=== PATIENT | female | born 1995 | race Caucasian/White ===

== ENCOUNTER 2021-03-24 15:48 | Inpatient (IN) ==
[2021-03-24] MEDS ORDERED: Ketorolac 15 MG/ML VIAL IVP ONE (16:16)
[2021-03-24] MEDS ORDERED: Ondansetron 4 MG/2 ML VIAL IVP ONE (16:16)
[2021-03-24] MEDS ORDERED: 0.9 % Sodium Chloride 1,000 ML IVC ONE ×2 (16:16→17:29)
[2021-03-24] MEDS ORDERED: *HR* HYDROmorphone (PF) 1 MG/ML SYRINGE IVP STA (17:25)
[2021-03-24] MEDS ORDERED: *HR* Promethazine 25 MG/ML VIAL IM ONE (17:30)
[2021-03-24 18:14] LABS: Alanine Aminotransferase 30 Units/L (7-52); Albumin 3.9 g/dL (3.5-5.7); Albumin/Globulin Ratio 2.6 (1.1-2.2); Alkaline Phosphatase 52 Units/L (34-104); Aspartate Amino Transferase 31 Units/L (13-39); BUN/Creatinine Ratio 16 (6-26); Bilirubin,Direct 0.1 mg/dL (0.0-0.2); Bilirubin,Indirect 0.1 mg/dL (0.0-1.0); Bilirubin,Total 0.2 mg/dL (0.3-1.0); Blood Urea Nitrogen 10 mg/dL (6-20); Calcium 8.6 mg/dL (8.6-10.3); Carbon Dioxide 17 mEq/L (23-29); Chloride 89 mEq/L (98-107); Globulin 1.5 g/dL (2.4-3.5); Glucose 308 mg/dL (70-105); Lipase 365 Units/L (11-82); Osmolality,Calculated 263 (280-300); Potassium 3.4 mEq/L (3.5-5.1); Sodium 121 mEq/L (136-145); Total Protein 5.4 g/dL (6.4-8.9); eGFR For African Americans > 60 (> 60); eGFR For Non-African Americans > 60 (> 60)
[2021-03-24] MEDS ORDERED: Potassium Chloride 20 MEQ, Lidocaine 1% 2 ML in 0.9 % Sodium Chloride 250 ML IVPB ONE (18:25)
[2021-03-24 18:29] LABS: Mean Corpuscular Volume 77.3 fL (83.0-100.0); Mean Platelet Volume 11.5 fL (9.4-12.4); Nucleated Red Blood Cells 0.2 /100 WBC (0); Platelet Count 265 K/mcL (140-400); Red Blood Count 4.84 M/mcL (3.82-4.97); Red Cell Distribution Width 14.1 % (11.5-14.5)
[2021-03-24 18:35] LABS: Mean Corpuscular Hemoglobin 26.6 pg (28.0-33.3)
[2021-03-24 18:36] LABS: Hematocrit 37.4 % (35.3-44.9); Mean Corpuscular HGB Conc 34.4 g/dL (31.6-35.5)
[2021-03-24 18:37] LABS: Hemoglobin 13.2 g/dL (11.5-15.4)
[2021-03-24 18:55] LABS: Magnesium 2.9 mg/dL (1.6-2.6)
[2021-03-24] MEDS ORDERED: *HR* HYDROmorphone (PF) 1 MG/ML SYRINGE IVP ONE ×2 (19:04→20:10)
[2021-03-24] MEDS ORDERED: Acetaminophen 325 MG TABLET PO PRN (19:53)
[2021-03-24] MEDS ORDERED: Naloxone 0.4 MG/ML INJ IVP PRN (19:53)
[2021-03-24] MEDS ORDERED: Dextrose Gel 15 GM/37.5 ML TUBE PO PRN ×2 (19:57)
[2021-03-24] MEDS ORDERED: D5% in Water 1,000 ML IVC PRN (19:57)
[2021-03-24] MEDS: Insulin LISPRO 300 UNITS/3 ML VIAL SUBQ SCH (20:53)
[2021-03-24] MEDS ORDERED: Insulin LISPRO 300 UNITS/3 ML VIAL SUBQ SCH (21:00)
[2021-03-24 21:04] LABS: Estimated Average Glucose 315 mg/dl; Hemoglobin A1C 12.6 %
[2021-03-24 21:10] LABS: Calcium 7.1 mg/dL (8.6-10.3); Carbon Dioxide 14 mEq/L (23-29); Chloride 93 mEq/L (98-107); Glucose 333 mg/dL (70-105); Potassium 3.4 mEq/L (3.5-5.1); Sodium 123 mEq/L (136-145); eGFR For African Americans > 60 (> 60); eGFR For Non-African Americans > 60 (> 60)
[2021-03-24 21:53] LABS: BUN/Creatinine Ratio 15 (6-26); Blood Urea Nitrogen 10 mg/dL (6-20); Osmolality,Calculated 268 (280-300)
[2021-03-24] MEDS ORDERED: 0.9 % Sodium Chloride 1,000 ML IVC SCH (22:15)
[2021-03-24] MEDS ORDERED: Insulin DETEMIR 100 UNIT/ML X5UNITS SUBQ SCH (22:45)
[2021-03-25] MEDS: Ondansetron 4 MG/2 ML VIAL IVP PRN ×3 (00:10→21:19)
[2021-03-25] MEDS: *HR* HYDROmorphone 2 MG/ML SYRINGE IVP PRN ×6 (00:12→21:19)
[2021-03-25 01:16] LABS: Basophils # 0.1 K/mcL (0.0-0.2); Basophils % 0.3 %; Eosinophils % 0.1 %; Hematocrit 43.8 % (35.3-44.9); Immature Granulocytes % 0.4 % (0-4); Lymphocytes # 1.5 K/mcL (0.6-4.6); Lymphocytes % 9.1 %; Mean Corpuscular HGB Conc 36.5 g/dL (31.6-35.5); Mean Corpuscular Hemoglobin 29.1 pg (28.0-33.3); Mean Corpuscular Volume 79.6 fL (83.0-100.0); Mean Platelet Volume 11.3 fL (9.4-12.4); Monocytes # 0.9 K/mcL (0.0-1.3); Monocytes % 5.5 %; Neutrophils # 13.6 K/mcL (1.6-8.9); Platelet Count 317 K/mcL (140-400); Segmented Neutrophils % 84.6 %; White Blood Count 16.1 K/mcL (4.3-11.1)
[2021-03-25 01:25] LABS: INR 1.2; Prothrombin Time 13.4 Seconds (9.4-12.1)
[2021-03-25 01:30] LABS: Bacteria,Urine Moderate per hpf (None-Few); Bilirubin,Urine Negative (Negative); Blood,Urine Moderate (Negative); Clarity,Urine Clear (Clear); Color,Urine Light-Yellow (Yellow); Glucose,Urine (UA) >=1000 mg/dL (Normal); Ketones,Urine 40 mg/dL (Negative); Leukocyte Esterase,Urine Negative (Negative); Mucus,Urine Few per lpf (None-Few); Nitrite,Urine Negative (Negative); Protein,Urine >=300 mg/dL (Neg-Trace); RBC,Urine 0-3 per hpf (0-3); Specific Gravity,Urine > 1.030 (1.010-1.025); Squamous Epithelial Cell,Urine Few per hpf (None-Few); Urobilinogen,Urine Normal (Normal)
[2021-03-25 01:51] LABS: Thyroid Stimulating Hormone 1.526 mcIU/mL (0.340-5.600); Triiodothyronine (T3) Free 3.78 pg/mL (2.50-3.90)
[2021-03-25] MEDS ORDERED: *HR* Metoprolol 5 MG/5 ML VIAL IVP ONE ×3 (02:34→10:23)
[2021-03-25] MEDS ORDERED: Calcium Gluconate 1gm/50mL 1 GM/50 ML BAG IVPB ONE ×2 (02:48→05:18)
[2021-03-25 03:09] LABS: BUN/Creatinine Ratio 16 (6-26); Blood Urea Nitrogen 8 mg/dL (6-20); Calcium 5.3 mg/dL (8.6-10.3); Carbon Dioxide 13 mEq/L (23-29); Chloride 101 mEq/L (98-107); Glucose 426 mg/dL (70-105); Lipase 1010 Units/L (11-82); Magnesium 1.2 mg/dL (1.6-2.6); Osmolality,Calculated 287 (280-300); Potassium 4.4 mEq/L (3.5-5.1); Sodium 130 mEq/L (136-145); eGFR For African Americans > 60 (> 60); eGFR For Non-African Americans > 60 (> 60)
[2021-03-25 03:40] LABS: VBG Ionized Calcium 0.67 mmol/L (1.15-1.35)
[2021-03-25 04:43] LABS: Alanine Aminotransferase 25 Units/L (7-52); Albumin 3.1 g/dL (3.5-5.7); Albumin/Globulin Ratio 1.7 (1.1-2.2); Alkaline Phosphatase 47 Units/L (34-104); Aspartate Amino Transferase 26 Units/L (13-39); BUN/Creatinine Ratio 18 (6-26); Bilirubin,Total 0.5 mg/dL (0.3-1.0); Blood Urea Nitrogen 10 mg/dL (6-20); Carbon Dioxide 12 mEq/L (23-29); Chloride 100 mEq/L (98-107); Globulin 1.8 g/dL (2.4-3.5); Glucose 473 mg/dL (70-105); Magnesium 1.1 mg/dL (1.6-2.6); Osmolality,Calculated 282 (280-300); Phosphorous 2.6 mg/dL (2.7-4.5); Potassium 5.9 mEq/L (3.5-5.1); Sodium 126 mEq/L (136-145); Total Protein 4.9 g/dL (6.4-8.9); eGFR For African Americans > 60 (> 60); eGFR For Non-African Americans > 60 (> 60)
[2021-03-25 04:59] LABS: Calcium 5.8 mg/dL (8.6-10.3)
[2021-03-25] MEDS: *HR* Heparin 5,000 UNIT/ML VIAL SQ SCH ×2 (05:22→17:11)
[2021-03-25] MEDS ORDERED: D5% in 0.45% NACL 1,000 ML IVC PRN (05:46)
[2021-03-25] MEDS ORDERED: Insulin Regular, Human 100 UNIT/ML IV ONE ×2 (05:46→07:00)
[2021-03-25] MEDS ORDERED: Insulin Regular, Human 100 UNIT/ML IV PRN (05:46)
[2021-03-25 05:51] LABS: Chol/HDL Ratio 47.9 (0-4.9); Cholesterol 910 mg/dL (< 200); HDL Cholesterol 19 mg/dL (40-59); Triglycerides > 5000 mg/dL (< 150)
[2021-03-25] MEDS ORDERED: Potassium Phosphate 44 MEQ in 0.9 % Sodium Chloride 250 ML IVPB PRN (06:22)
[2021-03-25] MEDS ORDERED: Calcium Gluconate 1gm/50mL 1 GM/50 ML BAG IVPB PRN (06:22)
[2021-03-25] MEDS: Insulin LISPRO 300 UNITS/3 ML VIAL SUBQ SCH (07:23)
[2021-03-25 07:28] LABS: ABG Base Excess -7 mEq/L (-2 to 3); ABG HCO3 18 mEq/L (21-27); ABG Oxygen Saturation 93 % (95-98); ABG PCO2 33 mmHg (35-45); ABG PH 7.34 pH Units (7.32-7.45); ABG PO2 70 mmHg (85-104); ABG TCO2 19 mEq/L (20-26)
[2021-03-25 08:09] LABS: VBG HCO3 15 mEq/L (21-27); VBG Ionized Calcium 0.68 mmol/L (1.15-1.35); VBG PCO2 26 mmHg (41-51); VBG PH 7.38 pH Units (7.32-7.42); VBG PO2 104 mmHg (25-50)
[2021-03-25 09:41] LABS: BUN/Creatinine Ratio 15 (6-26); Blood Urea Nitrogen 11 mg/dL (6-20); Calcium 4.9 mg/dL (8.6-10.3); Carbon Dioxide 12 mEq/L (23-29); Chloride 100 mEq/L (98-107); Glucose 508 mg/dL (70-105); Magnesium 1.7 mg/dL (1.6-2.6); Osmolality,Calculated 288 (280-300); Potassium 4.3 mEq/L (3.5-5.1); Sodium 128 mEq/L (136-145); eGFR For African Americans > 60 (> 60); eGFR For Non-African Americans > 60 (> 60)
[2021-03-25] MEDS ORDERED: Calcium Gluconate 3,000 MG in 0.9 % Sodium Chloride 100 ML IVPB ONE ×2 (10:30→16:30)
[2021-03-25] MEDS: Piperacillin/Tazobactam 3.375 GM in 0.9 % Sodium Chloride Mini Bag 100 ML IVPB SCH ×2 (11:10→15:54)
[2021-03-25 11:38] LABS: VBG HCO3 16 mEq/L (21-27); VBG PCO2 35 mmHg (41-51); VBG PH 7.27 pH Units (7.32-7.42); VBG PO2 125 mmHg (25-50)
[2021-03-25 13:05] LABS: Bilirubin,Urine Small (Negative); Blood,Urine Large (Negative); Color,Urine Yellow (Yellow); Glucose,Urine (UA) >=1000 mg/dL (Normal); Ketones,Urine 15 mg/dL (Negative); Leukocyte Esterase,Urine Negative (Negative); Nitrite,Urine Negative (Negative); PH,Urine 5.5 pH Units (5.0-8.0); Protein,Urine >=300 mg/dL (Neg-Trace); Specific Gravity,Urine >= 1.030 (1.010-1.025); Urobilinogen,Urine Normal (Normal)
[2021-03-25 13:19] LABS: Clarity,Urine Slightly Hazy (Clear)
[2021-03-25 13:24] LABS: Bacteria,Urine Few per hpf (None-Few); Granular Casts,Urine Few per lpf (None Seen); Squamous Epithelial Cell,Urine Few per hpf (None-Few); WBC,Urine 0-3 per hpf (0-3)
[2021-03-25 13:44] LABS: VBG HCO3 21 mEq/L (21-27); VBG PCO2 50 mmHg (41-51); VBG PH 7.22 pH Units (7.32-7.42); VBG PO2 63 mmHg (25-50)
[2021-03-25 14:32] LABS: BUN/Creatinine Ratio 13 (6-26); Blood Urea Nitrogen 13 mg/dL (6-20); Calcium 5.9 mg/dL (8.6-10.3); Carbon Dioxide 17 mEq/L (23-29); Chloride 108 mEq/L (98-107); Glucose 391 mg/dL (70-105); Osmolality,Calculated 314 (280-300); Sodium 144 mEq/L (136-145); eGFR For African Americans > 60 (> 60); eGFR For Non-African Americans > 60 (> 60)
[2021-03-25 15:11] LABS: VBG HCO3 21 mEq/L (21-27); VBG PCO2 51 mmHg (41-51); VBG PH 7.23 pH Units (7.32-7.42); VBG PO2 65 mmHg (25-50)
[2021-03-25 15:27] LABS: BUN/Creatinine Ratio 14 (6-26); Blood Urea Nitrogen 13 mg/dL (6-20); Carbon Dioxide 17 mEq/L (23-29); Chloride 101 mEq/L (98-107); Glucose 314 mg/dL (70-105); Osmolality,Calculated 290 (280-300); Potassium 3.7 mEq/L (3.5-5.1); Sodium 134 mEq/L (136-145); eGFR For African Americans > 60 (> 60); eGFR For Non-African Americans > 60 (> 60)
[2021-03-25] MEDS: D10% in Water 500 ML IVC SCH ×2 (16:18→21:50)
[2021-03-25] MEDS: 0.45 % Sodium Chloride w/KCl 20 MEQ/1,000 ML MLS IVC SCH (16:29)
[2021-03-25] MEDS: *HR* Metoprolol 5 MG/5 ML VIAL IVP PRN (18:22)
[2021-03-25 19:06] LABS: BUN/Creatinine Ratio 12 (6-26); Blood Urea Nitrogen 12 mg/dL (6-20); Calcium 5.9 mg/dL (8.6-10.3); Carbon Dioxide 17 mEq/L (23-29); Chloride 94 mEq/L (98-107); Glucose 712 mg/dL (70-105); Osmolality,Calculated 288 (280-300); Potassium 3.5 mEq/L (3.5-5.1); Sodium 122 mEq/L (136-145); eGFR For African Americans > 60 (> 60); eGFR For Non-African Americans > 60 (> 60)
[2021-03-25 19:14] LABS: Magnesium 2.2 mg/dL (1.6-2.6)
[2021-03-25] MEDS ORDERED: Calcium Gluconate 1,000 MG/10 ML VIAL IVPB STA (19:22)
[2021-03-25] MEDS: Calcium Gluconate 1gm/50mL 1 GM/50 ML BAG IVPB SCH ×2 (20:14→21:15)
[2021-03-26] MEDS: Piperacillin/Tazobactam 3.375 GM in 0.9 % Sodium Chloride Mini Bag 100 ML IVPB SCH ×2 (00:17→08:04)
[2021-03-26] MEDS: *HR* Metoprolol 5 MG/5 ML VIAL IVP PRN ×2 (00:31→11:56)
[2021-03-26] MEDS: 0.45 % Sodium Chloride w/KCl 20 MEQ/1,000 ML MLS IVC SCH (00:41)
[2021-03-26 01:03] LABS: VBG Ionized Calcium 0.86 mmol/L (1.15-1.35)
[2021-03-26] MEDS: *HR* Dextrose 50 % in Water (Vial) 50 ML VIAL IVP PRN ×6 (01:12→14:13)
[2021-03-26 01:36] LABS: BUN/Creatinine Ratio 12 (6-26); Blood Urea Nitrogen 13 mg/dL (6-20); Calcium 5.4 mg/dL (8.6-10.3); Carbon Dioxide 17 mEq/L (23-29); Chloride 85 mEq/L (98-107); Magnesium 1.9 mg/dL (1.6-2.6); Osmolality,Calculated 299 (280-300); Potassium 3.7 mEq/L (3.5-5.1); Sodium 110 mEq/L (136-145); eGFR For African Americans > 60 (> 60); eGFR For Non-African Americans > 60 (> 60)
[2021-03-26] MEDS: *HR* HYDROmorphone 2 MG/ML SYRINGE IVP PRN ×3 (02:04→12:37)
[2021-03-26] MEDS: Calcium Gluconate 1gm/50mL 1 GM/50 ML BAG IVPB SCH ×2 (02:09→03:11)
[2021-03-26] MEDS: D10% in Water 500 ML IVC SCH ×4 (02:29→15:43)
[2021-03-26 04:48] LABS: Hematocrit 38.2 % (35.3-44.9); Mean Corpuscular HGB Conc 29.1 g/dL (31.6-35.5); Mean Corpuscular Hemoglobin 26.3 pg (28.0-33.3); Mean Platelet Volume 11.7 fL (9.4-12.4); Platelet Count 200 K/mcL (140-400); Red Blood Count 4.22 M/mcL (3.82-4.97); Red Cell Distribution Width 15.3 % (11.5-14.5)
[2021-03-26 04:52] LABS: VBG Ionized Calcium 0.86 mmol/L (1.15-1.35)
[2021-03-26] MEDS: *HR* Heparin 5,000 UNIT/ML VIAL SQ SCH (04:58)
[2021-03-26 05:18] LABS: Hemoglobin 11.1 g/dL (11.5-15.4); Mean Corpuscular Volume 90.5 fL (83.0-100.0)
[2021-03-26 05:30] LABS: BUN/Creatinine Ratio 12 (6-26); Blood Urea Nitrogen 13 mg/dL (6-20); Calcium 5.5 mg/dL (8.6-10.3); Carbon Dioxide 16 mEq/L (23-29); Chloride 84 mEq/L (98-107); Magnesium 1.7 mg/dL (1.6-2.6); Osmolality,Calculated 301 (280-300); Phosphorous 1.7 mg/dL (2.7-4.5); Potassium 3.3 mEq/L (3.5-5.1); Sodium 107 mEq/L (136-145); Triglycerides 2079 mg/dL (< 150); eGFR For African Americans > 60 (> 60); eGFR For Non-African Americans > 60 (> 60)
[2021-03-26 05:39] LABS: Glucose 1488 mg/dL (70-105)
[2021-03-26 05:39] LABS: Glucose 1337 mg/dL (70-105)
[2021-03-26] MEDS: 0.9 % Sodium Chloride w KCl 20 MEQ/1,000 ML MLS IVC SCH ×2 (06:03→14:00)
[2021-03-26] MEDS: Calcium Gluconate 1gm/50mL 1 GM/50 ML BAG IVPB PRN ×2 (06:04→07:14)
[2021-03-26 06:24] LABS: VBG HCO3 20 mEq/L (21-27); VBG PCO2 43 mmHg (41-51); VBG PH 7.27 pH Units (7.32-7.42); VBG PO2 39 mmHg (25-50)
[2021-03-26] MEDS: Ondansetron 4 MG/2 ML VIAL IVP PRN (06:58)
[2021-03-26 11:41] LABS: ABG Base Excess -6 mEq/L (-2 to 3); ABG HCO3 20 mEq/L (21-27); ABG Oxygen Saturation 87 % (95-98); ABG PCO2 38 mmHg (35-45); ABG PH 7.32 pH Units (7.32-7.45); ABG PO2 56 mmHg (85-104); ABG TCO2 21 mEq/L (20-26)
[2021-03-26 15:56] VITALS: BP 123/71
[2021-03-27 09:36] LABS: ANA IgG by ELISA NONE DETECTED (None Detected)
== END 2021-03-26 15:55 | disposition short-term general hospital (02) | DRG 871 ==
LOC: 3ANU 15:48 → EMEROOARM 15:48 → 3ANU 19:49 → ICNU 03-25 06:45
PROVIDERS: ADMIT Internal Medicine; ATTEND Internal Medicine